=== PATIENT | female | born 1955 | race Caucasian/White ===

== ENCOUNTER 2018-04-30 19:18 | Inpatient (IN) ==
[2018-04-30] MEDS ORDERED: IOPAMIDOL 100 ML BOTTLE IV ONE (19:19)
--- NOTE | 2018-04-30 19:34 | Emergency Department Note ---
Abdominal Pain HPI - General Chief Complaint: Abdominal Pain Stated Complaint: Upper Abd Pain Time Seen by Provider: 04/30/18 19:33 - History of Present Illness HPI Narrative: This patient started having abdominal pain just before starting to eat dinner. Spell the right upper quadrant radiates around to the back. Also associated with nausea. Pain is sharp and came on suddenly. - Related Data Home Medications Medication Instructions Recorded Confirmed urea 50 % topical cream TOPICAL 30 Days #255 08/20/15 04/18/18 CBD Oil TOPICAL 02/13/18 04/18/18 diclofenac 1 % topical gel 2 g TOPICAL QID 02/13/18 04/30/18 Previous Rx's Medication Instructions Recorded aspirin 81 mg tablet,delayed 81 mg PO QDAY #30 tab 08/20/15 release desonide 0.05 % lotion 1 applic TOPICAL BID PRN #59 ml 11/02/16 duloxetine 30 mg capsule,delayed 30 mg PO QDAY #30 cap 05/09/17 release omeprazole 40 mg capsule,delayed 40 mg PO QDAY 90 Days #90 cap 07/12/17 release diltiazem CD 300 mg 300 mg PO QDAY #30 cap 08/04/17 capsule,extended release 24 hr fenofibrate micronized 134 mg 134 mg PO QDAY #90 cap 09/20/17 capsule acetaminophen 300 mg-codeine 60 mg 1 tab PO Q6H PRN #60 tab 09/21/17 tablet spironolactone 50 mg tablet 50 mg PO QAM #30 tab 12/14/17 metoprolol succinate ER 50 mg 50 mg PO TID PRN 30 Days #90 tab 01/19/18 tablet,extended release 24 hr duloxetine 60 mg capsule,delayed 120 mg PO QDAY #60 cap 02/13/18 release gabapentin 300 mg capsule 300 mg PO TID #270 each 02/22/18 nitrofurantoin 100 mg PO BID #14 cap 04/06/18 monohydrate/macrocrystals 100 mg capsule leflunomide 20 mg tablet 20 mg PO QDAY #60 tab 04/18/18 Allergies Allergy/AdvReac Type Severity Reaction Status Date / Time MELISSA Inhibitors Allergy Unknown Cough Verified 04/18/18 11:08 atorvastatin [From Lipitor] Allergy Unknown Muscle Pain Verified 04/18/18 11:08 hydrochlorothiazide Allergy Unknown Muscle Pain Verified 04/18/18 11:08 [From Diovan HCT] prochlorperazine Allergy Unknown Seizure Verified 04/18/18 11:08 [From Compazine] sucralose Allergy Unknown Nausea, Verified 04/18/18 11:08 vomiting valsartan [From Diovan HCT] Allergy Unknown Muscle Pain Verified 04/18/18 11:08 chlorine AdvReac Unknown Stomach Uncoded 04/18/18 11:08 pain Review of Systems All systems ED: reviewed and negative except as stated. Abdominal Pain PMH - Past Medical History Medical history: Reports: atrial fibrillation Surgical history ED: Reports: knee replacement, orthopedic, other, tonsillectomy - Social History Smoking status: Never smoker Physical Exam Limitations: no limitations General appearance: alert Head: atraumatic Eye: Present: normal appearance ENT: normal exam Neck: Present: normal inspection Chest: Present: normal inspection Respiratory: Present: normal lung sounds bilaterally Cardiovascular: Present: regular rate, normal rhythm, normal heart sounds Abdominal: Present: soft, tenderness. Absent: distention, guarding, rebound, rigidity Abdominal tenderness: Present: RUQ, moderate Neurological: Present: alert Psychiatric: Present: normal affect Skin: Present: warm Course Vital Signs Temperature 97.4 F 04/30/18 19:20 Pulse Rate 60 04/30/18 19:20 Respiratory Rate 18 04/30/18 19:20 Blood Pressure 101/66 04/30/18 19:20 Pulse Oximetry (%) 100 04/30/18 19:20 Temperature 97.8 F 05/01/18 07:34 Pulse Rate 82 05/01/18 07:34 Respiratory Rate 16 05/01/18 07:34 Blood Pressure 150/100 05/01/18 07:34 Pulse Oximetry (%) 96 05/01/18 07:34 Abdominal Pain - MDM Narrative Medical decision making narrative: This patient has what appears to be uncomplicated pancreatitis. She will be admitted to the hospital. - Lab Data Lab results reviewed: Yes I reviewed the patient's lab results. Result diagrams: 05/01/18 04:22 05/01/18 04:22 Lab Results 04/30/18 04/30/18 04/30/18 Range/Units 19:55 19:55 19:59 WBC 8.3 (4.5-11.0) K/mcL RBC 3.06 L (4.00-5.20) M/mcL Hgb 9.9 L (12.0-15.0) g/dL Hct 29.1 L (36.0-48.0) % POC Hct 29.0 L (36.0-48.0) % MCV 95.2 (80.0-100.0) fL MCH 32.4 (26.0-34.0) pg MCHC 34.0 (31.0-36.0) g/dL RDW 14.7 H (11.5-14.5) % Plt Count 282 (140-440) K/mcL MPV 8.4 (7.4-10.4) fL Gran % 56.4 (38.0-78.0) % Lymph % (Auto) 33.6 (15.5-49.0) % Blount % (Auto) 6.4 (1.0-12.0) % Eos % (Auto) 3.3 (0.0-7.0) % Baso % (Auto) 0.3 (0.0-2.0) % Gran # 4.7 (1.8-8.0) K/mcL Lymph # (Auto) 2.8 (1.5-4.8) K/mcL Blount # (Auto) 0.5 (0.1-0.9) K/mcL Eos # (Auto) 0.3 (0.0-0.7) K/mcL Baso # (Auto) 0 (0.0-0.3) K/mcL POC Sodium 137 (133-145) mmol/L Sodium (133-145) mmol/L POC Potassium 3.7 (3.3-5.1) mmol/L Potassium (3.3-5.1) mmol/L POC Chloride 103 (96-108) mmol/L Chloride (96-108) mmol/L Carbon Dioxide (22-30) mmol/L POC Total CO2 23 (22-30) mmol/L Anion Gap (8-16) POC BUN 22 (8-23) mg/dl BUN (8-23) mg/dl Creatinine (0.6-1.1) mg/dl POC Creatinine 1.3 H (0.6-1.1) mg/dl GFR Calculation Glucose (70-105) mg/dL POC Glucose 112 H (70-105) mg/dL Calcium (8.6-10.4) mg/dl POC WB Ioniz Calcium 0.94 L (1.16-1.32) mmol/L Total Bilirubin (0.0-1.0) mg/dL AST (0-37) U/l ALT (0-40) U/l Alkaline Phosphatase (39-117) U/L Lactate Dehydrogenase (94-250) U/L Total Protein (5.9-8.4) gm/dL Albumin (3.2-5.2) gm/dL Globulin (2.2-3.7) gm/dL Albumin/Globulin Ratio (1.0-2.3) Triglycerides (<150) mg/dl Lipase (7-60) U/L Urine Color Yellow Urine Appearance Clear Urine pH 5.0 (5.0-9.0) Ur Specific [place] 1.018 (1.000-1.035) Urine Protein Neg (NEG) mg/dL Urine Glucose (UA) Negative (NEG) mg/dL Urine Ketones Neg (NEG) mg/dL Urine Occult Blood Neg (<0.03) mg/dL Urine Nitrate Neg (NEG) Urine Bilirubin Neg (NEG) mg/dL Urine Urobilinogen Neg (NEG) mg/dL Ur Leukocyte Esterase 500 A (NEG) /uL Urine RBC 3 H (0-1) /hpf Urine WBC 87 H (0-4) /hpf Ur Squamous Epith Cells < 1 (0-4) /hpf Ur Transition Epith Cell 1 (0-2) /hpf Urine Bacteria 0 (0) /hpf Urine Mucus Few (0) /hpf Ur Culture Indicated? Yes 04/30/18 04/30/18 Range/Units 19:59 19:59 WBC (4.5-11.0) K/mcL RBC (4.00-5.20) M/mcL Hgb (12.0-15.0) g/dL Hct (36.0-48.0) % POC Hct (36.0-48.0) % MCV (80.0-100.0) fL MCH (26.0-34.0) pg MCHC (31.0-36.0) g/dL RDW (11.5-14.5) % Plt Count (140-440) K/mcL MPV (7.4-10.4) fL Gran % (38.0-78.0) % Lymph % (Auto) (15.5-49.0) % Blount % (Auto) (1.0-12.0) % Eos % (Auto) (0.0-7.0) % Baso % (Auto) (0.0-2.0) % Gran # (1.8-8.0) K/mcL Lymph # (Auto) (1.5-4.8) K/mcL Blount # (Auto) (0.1-0.9) K/mcL Eos # (Auto) (0.0-0.7) K/mcL Baso # (Auto) (0.0-0.3) K/mcL POC Sodium (133-145) mmol/L Sodium 139 (133-145) mmol/L POC Potassium (3.3-5.1) mmol/L Potassium 4.0 (3.3-5.1) mmol/L POC Chloride (96-108) mmol/L Chloride 101 (96-108) mmol/L Carbon Dioxide 23 (22-30) mmol/L POC Total CO2 (22-30) mmol/L Anion Gap 15.0 (8-16) POC BUN (8-23) mg/dl BUN 21 (8-23) mg/dl Creatinine 1.2 H (0.6-1.1) mg/dl POC Creatinine (0.6-1.1) mg/dl GFR Calculation 48 Glucose 115 H (70-105) mg/dL POC Glucose (70-105) mg/dL Calcium 9.8 (8.6-10.4) mg/dl POC WB Ioniz Calcium (1.16-1.32) mmol/L Total Bilirubin 0.4 (0.0-1.0) mg/dL AST 34 (0-37) U/l ALT 20 (0-40) U/l Alkaline Phosphatase 31 L (39-117) U/L Lactate Dehydrogenase 215 (94-250) U/L Total Protein 6.4 (5.9-8.4) gm/dL Albumin 4.2 (3.2-5.2) gm/dL Globulin 2.2 (2.2-3.7) gm/dL Albumin/Globulin Ratio 1.9 (1.0-2.3) Triglycerides 168 H (<150) mg/dl Lipase 1882 H (7-60) U/L Urine Color Urine Appearance Urine pH (5.0-9.0) Ur Specific [place] (1.000-1.035) Urine Protein (NEG) mg/dL Urine Glucose (UA) (NEG) mg/dL Urine Ketones (NEG) mg/dL Urine Occult Blood (<0.03) mg/dL Urine Nitrate (NEG) Urine Bilirubin (NEG) mg/dL Urine Urobilinogen (NEG) mg/dL Ur Leukocyte Esterase (NEG) /uL Urine RBC (0-1) /hpf Urine WBC (0-4) /hpf Ur Squamous Epith Cells (0-4) /hpf Ur Transition Epith Cell (0-2) /hpf Urine Bacteria (0) /hpf Urine Mucus (0) /hpf Ur Culture Indicated? - Radiology Data Radiology results reviewed: Yes I reviewed the patient's radiology results. Disposition Pt seen by OIL RECOVERY OPERATOR/PA only: No Clinical Impression: Pancreatitis Disposition: Xfer As Inpt ([facility]) Condition: Undetermined
[2018-04-30] MEDS ORDERED: LACTATED RINGERS 1,000 ML IV ONE (19:37)
[2018-04-30] MEDS ORDERED: ACETAMINOPHEN 1,000 MG/100 ML BOTTLE IV ONE (19:37)
[2018-04-30] MEDS ORDERED: ONDANSETRON 4 MG/2 ML VIAL IV ONE (19:37)
[2018-04-30 20:59] LABS: Basophils # (Auto) 0 K/mcL (0.0-0.3); Basophils % (Auto) 0.3 % (0.0-2.0); Eosinophils # (Auto) 0.3 K/mcL (0.0-0.7); Eosinophils % (Auto) 3.3 % (0.0-7.0); Granulocytes % (Auto) 56.4 % (38.0-78.0); Lymphocytes # (Auto) 2.8 K/mcL (1.5-4.8); Lymphocytes % (Auto) 33.6 % (15.5-49.0); Mean Cell Volume 95.2 fL (80.0-100.0); Mean Corpuscular Hemoglobin 32.4 pg (26.0-34.0); Monocytes # (Auto) 0.5 K/mcL (0.1-0.9); Monocytes % (Auto) 6.4 % (1.0-12.0); Platelet Count 282 K/mcL (140-440); RBC 3.06 M/mcL (4.00-5.20); Red Cell Distribution Width 14.7 % (11.5-14.5)
[2018-04-30 21:13] LABS: Appearance,Urine CLEAR; Bacteria,Urine 0 /hpf (0); Bilirubin,Urine NEG (NEG); Color,Urine YELLOW; Glucose,Urine (UA) NEGATIVE (NEG); Leukocyte Esterase,Urine 500 /uL (NEG); Mucus,Urine FEW /hpf (0); Protein,Urine NEG (NEG); Specific Gravity,Urine 1.018 (1.000-1.035); Urine Blood NEG mg/dL (<0.03); Urine RBC 3 /hpf (0-1); Urine Squamous Epithelial Cell < 1 /hpf (0-4); Urine Transitional Epi Cells 1 /hpf (0-2); Urine WBC 87 /hpf (0-4); Urobilinogen,Urine NEG (NEG)
[2018-04-30 21:27] LABS: ALT/SGPT 20 U/l (0-40); Albumin 4.2 gm/dL (3.2-5.2); Albumin/Globulin Ratio 1.9 (1.0-2.3); Alkaline Phosphatase 31 U/L (39-117); Blood Urea Nitrogen 21 mg/dl (8-23)
[2018-04-30 21:32] LABS: Lipase 1882 U/L (7-60)
[2018-04-30] MEDS ORDERED: LEVOFLOXACIN 750 MG/150 ML BAG IV ONE (21:36)
[2018-04-30] MEDS ORDERED: HYDROmorphone 2 MG/ML VIAL IV PRN (22:55)
[2018-05-01] MEDS ORDERED: LACTATED RINGERS 1,000 ML IV SCH (00:15)
--- NOTE | 2018-05-01 00:37 | Internal Med Progress Note ---
Medical - PN: Subj Patient information: Note initiated : 05/01/18 at 12:33 am Service Date, if different from initiated Date: [] Patient: Tameka Herndon 63 y/o F admitted on for Upper Abd Pain. Chief Complaint: [Pancreatitis] - Constitutional Vitals: Vital Signs Temp Pulse Resp BP Pulse Ox 97.4 F 74 19 121/93 98 04/30/18 19:20 04/30/18 22:32 04/30/18 22:32 04/30/18 22:30 04/30/18 22:32 Period Temp Pulse Resp BP Sys/Carey Pulse Ox Last 24 Hr 97.4 F 60-74 9-19 99-130/66-93 93-100 Intake and Output 04/30/18 04/30/18 05/01/18 13:59 21:59 05:59 Intake Total 100 / 100 1150 / 1150 Balance 100 / 100 1150 / 1150 Weight 150 lb Patient Weight 05/01/18 05:59 Weight 150 lb Intake & Output: Intake & Output 04/30/18 04/30/18 05/01/18 13:59 21:59 05:59 Intake Total 100 / 100 1150 / 1150 Balance 100 / 100 1150 / 1150 Weight 150 lb Intake: IV 100 / 100 1150 / 1150 Lactated Ringers 1,000 ml @ 1000 / 1000 Wide Open IV BOLUS ONE Rx#: [id number] Medical - PN: Obj Da - Labs CBC & Chem 7: 04/30/18 19:59 04/30/18 19:59 Labs: Abnormal Lab Results 04/30/18 04/30/18 04/30/18 19:59 19:59 19:59 RBC 3.06 L Hgb 9.9 L Hct 29.1 L POC Hct RDW 14.7 H Creatinine 1.2 H POC Creatinine Glucose 115 H POC Glucose POC WB Ioniz Calcium Alkaline Phosphatase 31 L Triglycerides 168 H Lipase 1882 H Ur Leukocyte Esterase Urine RBC Urine WBC 04/30/18 04/30/18 19:55 19:55 RBC Hgb Hct POC Hct 29.0 L RDW Creatinine POC Creatinine 1.3 H Glucose POC Glucose 112 H POC WB Ioniz Calcium 0.94 L Alkaline Phosphatase Triglycerides Lipase Ur Leukocyte Esterase 500 A Urine RBC 3 H Urine WBC 87 H Meds: Medications Hydromorphone HCl (Dilaudid) 0.5 mg IV Q15MIN PRN PRN Reason: PAIN LEVEL > 6 Last Admin: 04/30/18 23:11 Dose: 0.5 mg Lactated Ringer's (Lactated Ringers) 1,000 mls @ 500 mls/hr IV .Q2H [facility] Last Admin: 05/01/18 00:10 Dose: 500 mls/hr Medical - PN: A/P - Time Spent With Patient Total time spent is greater than 50% in coordination of care (as documented) at patient's floor/unit and/or counseling patient: - Narrative A/P Narrative: A: *acute pancreatitis: likely 2/2 gallstones *UTI: *CKD III (1.1-1.2) *h/o Afib: on ccb/bb/asa *RA/Fibro: follows with Ar[facility] *Anemia of CD: *HTN/HLD: P: -IVF's -clear liquids -pain control -Rocephin, pending UC -d/w gen surg - - -ppx: lovenox
[2018-05-01] MEDS ORDERED: DESONIDE TOPICAL PRN (00:46)
[2018-05-01] MEDS ORDERED: METOPROLOL SUCCINATE 50 MG TAB.XL.24H PO PRN (00:46)
[2018-05-01] MEDS ORDERED: cefTRIAXone 1 GM in DEXTROSE 5% IN WATER 50 ML IV SCH (00:46)
[2018-05-01] MEDS ORDERED: ONDANSETRON ODT 4 MG TABLET SL PRN (00:46)
[2018-05-01] MEDS ORDERED: HYDROmorphone 2 MG/ML VIAL ONE ×2 (00:55→03:58)
[2018-05-01] MEDS ORDERED: ONDANSETRON 4 MG/2 ML VIAL ONE (01:01)
[2018-05-01] MEDS: 0.9 % SODIUM CHLORIDE 1,000 ML IV SCH ×4 (01:03→18:45)
[2018-05-01] MEDS ORDERED: cefTRIAXone 1 GM VIAL ONE (01:09)
[2018-05-01] MEDS: 0.9 % SODIUM CHLORIDE 10 ML SYRINGE IV SCH ×4 (05:21→20:40)
[2018-05-01] MEDS ORDERED: diphenhydrAMINE 50 MG/ML VIAL IV PRN (05:43)
[2018-05-01] MEDS ORDERED: diphenhydrAMINE 50 MG/ML VIAL ONE (05:51)
[2018-05-01 06:45] LABS: Basophils # (Auto) 0 K/mcL (0.0-0.3); Basophils % (Auto) 0.3 % (0.0-2.0); Eosinophils # (Auto) 0 K/mcL (0.0-0.7); Eosinophils % (Auto) 0.1 % (0.0-7.0); Granulocytes % (Auto) 85.2 % (38.0-78.0); Lymphocytes # (Auto) 0.8 K/mcL (1.5-4.8); Lymphocytes % (Auto) 7.8 % (15.5-49.0); Mean Cell Volume 95.2 fL (80.0-100.0); Mean Corpuscular Hemoglobin 32.3 pg (26.0-34.0); Monocytes # (Auto) 0.7 K/mcL (0.1-0.9); Monocytes % (Auto) 6.6 % (1.0-12.0); Platelet Count 259 K/mcL (140-440); RBC 3.06 M/mcL (4.00-5.20); Red Cell Distribution Width 14.5 % (11.5-14.5)
[2018-05-01] MEDS: HYDROmorphone 2 MG/ML VIAL IV PRN ×4 (07:19→20:36)
[2018-05-01 07:28] LABS: ALT/SGPT 20 U/l (0-40); Albumin 4.1 gm/dL (3.2-5.2); Albumin/Globulin Ratio 1.9 (1.0-2.3); Alkaline Phosphatase 28 U/L (39-117); Bilirubin,Direct 0.3 mg/dL (0.0-0.3); Blood Urea Nitrogen 19 mg/dl (8-23); Gamma Glutamyl Transpeptidase 15 U/L (5-36); Uric Acid 4.1 mg/dL (2.5-8.0)
--- NOTE | 2018-05-01 08:11 | Internal Med Progress Note ---
Medical - PN: Subj Patient information: Note initiated : 05/01/18 at 8:09 am Service Date, if different from initiated Date: [] Patient: Tameka Herndon 63 y/o F admitted on 05/01/18 for Upper Abd Pain. Chief Complaint: [] Interval history: feeling a little better, abdominal pain present but improved, Review of Systems: constipation, denies headache/fever/chills/nausea/vomiting/chest pain/cough/ dyspnea/diarrhea. Otherwise see above. - Constitutional Vitals: Vital Signs Temp Pulse Resp BP Pulse Ox 97.8 F 82 16 150/100 96 05/01/18 07:34 05/01/18 07:34 05/01/18 07:34 05/01/18 07:34 05/01/18 07:34 Period Temp Pulse Resp BP Sys/Carey Pulse Ox Last 24 Hr 97.4 F-97.8 F 60-82 9-20 99-150/66-100 93-100 Intake and Output 04/30/18 05/01/18 05/01/18 21:59 05:59 13:59 Intake Total 100 / 100 1567 / 1567 Output Total 400 / 400 500 / 500 Balance 100 / 100 1167 / 1167 -500 / -500 Weight 150 lb 160 lb Intake & Output: Intake & Output 04/30/18 05/01/18 05/01/18 21:59 05:59 13:59 Intake Total 100 / 100 1567 / 1567 Output Total 400 / 400 500 / 500 Balance 100 / 100 1167 / 1167 -500 / -500 Weight 150 lb 160 lb Intake: IV 100 / 100 1417 / 1417 Lactated Ringers 1,000 ml @ 500 1267 / 1267 mls/hr IV .Q2H [facility] Rx#: [id number] Oral 150 / 150 Output: Void Amount 400 / 400 500 / 500 Other: Urine Appearance Clear Urine Color Straw # Voids 1 Exam: General: Alert, Awake, No acute Distress HEENT: EOMI, PERRL CV: RRR, No murmurs Pulm: Clear b/l, no wheezing/rhonchi/rales Abd: soft, TTP epigastrum, +BS x4 Ext: no clubbing/cyanosis/edema Neuro: Alert, no focal deficits, moves all extremities Skin: warm/dry Medical - PN: Obj Da - Labs CBC & Chem 7: 05/01/18 04:22 05/01/18 04:22 Labs: Abnormal Lab Results 05/01/18 05/01/18 05/01/18 04:22 04:22 04:22 RBC 3.06 L Hgb 9.9 L Hct 29.1 L POC Hct RDW Gran % 85.2 H Lymph % (Auto) 7.8 L Gran # 8.6 H Lymph # (Auto) 0.8 L Creatinine POC Creatinine Glucose 113 H POC Glucose POC WB Ioniz Calcium Alkaline Phosphatase 28 L Triglycerides Lipase 1647 H Ur Leukocyte Esterase Urine RBC Urine WBC 04/30/18 04/30/18 04/30/18 19:59 19:59 19:59 RBC 3.06 L Hgb 9.9 L Hct 29.1 L POC Hct RDW 14.7 H Gran % Lymph % (Auto) Gran # Lymph # (Auto) Creatinine 1.2 H POC Creatinine Glucose 115 H POC Glucose POC WB Ioniz Calcium Alkaline Phosphatase 31 L Triglycerides 168 H Lipase 1882 H Ur Leukocyte Esterase Urine RBC Urine WBC 04/30/18 04/30/18 19:55 19:55 RBC Hgb Hct POC Hct 29.0 L RDW Gran % Lymph % (Auto) Gran # Lymph # (Auto) Creatinine POC Creatinine 1.3 H Glucose POC Glucose 112 H POC WB Ioniz Calcium 0.94 L Alkaline Phosphatase Triglycerides Lipase Ur Leukocyte Esterase 500 A Urine RBC 3 H Urine WBC 87 H Meds: Medications Aspirin (Aspirin) 81 mg PO DAILY [facility] Ceftriaxone Sodium (Rocephin) 1 gm IV Q24H [facility] Diltiazem HCl (Cardizem Cd) 120 mg PO DAILY [facility] Diltiazem HCl (Cardizem Cd) 180 mg PO DAILY [facility] Diphenhydramine HCl (Benadryl) 25 mg IV Q6HP PRN PRN Reason: Allergic Symptoms Duloxetine HCl (Cymbalta) 30 mg PO QDAY [facility] Enoxaparin Sodium (Lovenox) 40 mg SQ DAILY [facility] Famotidine (Pepcid) 20 mg IV Q12 [facility] Fenofibrate (Antara) 129 mg PO DAILY [facility] Gabapentin (Neurontin) 300 mg PO TID [facility] Hydromorphone HCl (Dilaudid) 0.5 mg IV Q2HP PRN PRN Reason: PAIN LEVEL > 6 Last Admin: 05/01/18 07:19 Dose: 0.5 mg Sodium Chloride (Sodium Chloride 0.9%) 1,000 mls @ 125 mls/hr IV .Q8H [facility] Last Admin: 05/01/18 01:03 Dose: 125 mls/hr Leflunomide (Arava) 20 mg PO QDAY [facility] Metoprolol Succinate (Toprol Xl) 50 mg PO TIDP PRN PRN Reason: hypetension, labile Non-Formulary Medication (Duloxetine Hcl [Cymbalta]) 120 mg PO QDAY [facility] Ondansetron HCl (Zofran Odt) 4 mg SL Q6HP PRN PRN Reason: Nausea And Vomiting Desonide [Desowen] (Cream) 1 dose TOPICAL BID PRN PRN Reason: skin irritation Diclofenac Sodium [ (Voltaren] Gel) 1 dose TOPICAL QID [facility] Sodium Chloride (Saline Flush) 10 ml IV Q8 [facility] Last Admin: 05/01/18 05:21 Dose: Not Given Medical - PN: A/P - Time Spent With Patient Total time spent is greater than 50% in coordination of care (as documented) at patient's floor/unit and/or counseling patient: - Narrative A/P Narrative: A: *acute pancreatitis: likely 2/2 gallstones *UTI: *CKD III (1.1-1.2) *h/o Afib: on ccb/bb/asa *RA/Fibro: follows with Arsl[facility] *Anemia of CD: *HTN/HLD: P: -IVF's -clear liquids -pain control -Rocephin, pending -Dr. Sifuentes consulted for potential josey - -ppx: lovenox Medical - PN: Qual - VTE Deep Vein Thrombosis/Pulmonary Embolism Present on Admission: No
--- NOTE | 2018-05-01 09:03 | History and Physical Report ---
DATE OF ADMISSION: 05/01/2018 PRIMARY CARE PROVIDER: Dr. Jackson; Manager International, Dr. Mcdaniels. CHIEF COMPLAINT: Abdominal pain. HISTORY OF PRESENT ILLNESS: A 63-year-old female who developed what she says is a grinding, severe abdominal pain, upper mid abdominal pain radiating to the back shortly before dinner at 5:00. She did eat dinner at 5:30. The pain continued to get worse. She came into the ER. Workup included a CT abdomen as well as gallbladder ultrasound. The CT abdomen and pelvis showed pancreatitis and gallbladder showed some stones and sludge, no wall thickening or pericholecystic fluid. Lipase was elevated. She denies any trauma or new medications. She does state that she did have a gallbladder attack when she was 26 and they said that she should have her gallbladder out at that time. She did not have anything done. She has not had any issues since then. She does not drink alcohol. Other chemistry was okay including calcium. She does have hypertriglyceridemia for which she is on fenofibrate. I do not have that lab value back yet. She was given IV fluid and Dilaudid in the ER. She is also found to have a UTI, started on antibiotics. REVIEW OF SYSTEMS: Positive for abdominal pain. Denies nausea, vomiting. No chest pain. Negative for headache, fever, chills, coughing, shortness of breath, diarrhea, constipation. The remaining 10-point review of systems was reviewed and negative. PAST MEDICAL HISTORY: Chronic kidney disease stage III, history of rheumatoid arthritis, fibromyalgia, history of hypertension, hyperlipidemia, anemia of chronic disease, history of paroxysmal atrial fibrillation, history of GERD. PAST SURGICAL HISTORY: Bilateral total knee arthroplasty, tonsillectomy, hand surgery. FAMILY HISTORY: Mother had cardiac disease and melanoma. Father is healthy. SOCIAL HISTORY: The patient denies tobacco and alcohol. She drinks rarely, ambulates with a cane, and is on disability. She lives with her . ALLERGIES: MELISSA INHIBITORS, ATORVASTATIN, HYDROCHLOROTHIAZIDE. We are currently trying to find the rest in the system-apparently she has a few more allergies. MEDICATIONS: 1. Aspirin. 2. Diltiazem. 3. Metoprolol. 4. Duloxetine. 5. Fenofibrate. 6. Gabapentin. 7. Leflunomide. 8. Omeprazole. 9. Aldactone. PHYSICAL EXAMINATION: VITAL SIGNS: Temperature 97, pulse 78, respirations 15, blood pressure 125/86, oxygen 93. GENERAL: The patient is alert, awake, in no acute distress. HEENT: Normocephalic, atraumatic. Extraocular movements intact. Pupils equal, react to light. HEART: Regular at this time. No murmurs appreciated. PULMONARY: Clear to auscultation bilaterally. No wheeze, rhonchi or rales. ABDOMEN: Abdomen soft, tender to palpation at the epigastrium. Positive bowel sounds. EXTREMITIES: No clubbing or cyanosis. Bilateral trace edema in the legs. NEUROLOGIC: Cranial nerves II-XII grossly intact. No focal deficit. Sensation, strength intact both lower. SKIN: Warm and dry. LABORATORY DATA: WBC 8.3, hemoglobin 9.9, BUN 21, creatinine 1.2, lipase 1800, calcium 9.8, triglycerides 160, LDH 215. RADIOLOGIC STUDIES: CT of the pancreas was done, read by virtual as findings consistent with pancreatitis. The gallbladder ultrasound per ER physician discussion with ____ as noted to have some small stones, possibly some sludge. No increased wall thickness or pericholecystic fluid. ASSESSMENT: 1. Acute pancreatitis, suspect secondary to gallstone. 2. Urinary tract infection. 3. Chronic kidney disease stage III with a baseline creatinine of 1.1 to 1.2. 4. History of rheumatoid arthritis and fibromyalgia; follows with Dr. Mcdaniels. 5. History of hypertension and hyperlipidemia. 6. Anemia of chronic disease. 7. History of atrial fibrillation for which she has been on diltiazem, metoprolol and aspirin. 8. History of GERD. PLAN: The patient monitored in the hospital with aggressive IV fluid hydration and p.r.n. pain medication. Keep her on clear liquids at this time and we will advance diet as tolerated. We will do follow-up labs in the morning. We will discuss the case with General Surgery for eventual possible cholecystectomy. DVT prophylaxis with Lovenox. MERVIN:josie Job ID: [id number] Doc ID: [id number] Mj Carbajal DO
[2018-05-01] MEDS ORDERED: POLYETHYLENE GLYCOL 3350 17 GM PACKET PO PRN (09:11)
[2018-05-01] MEDS ORDERED: POLYETHYLENE GLYCOL 3350 17 GM PACKET PO ONE (09:11)
--- NOTE | 2018-05-01 09:53 | Cat Scan Report ---
CLINICAL INFORMATION: Abdominal pain - pancreatitis COMPARISON: None. TECHNIQUE: Following enteric contrast, 80 cc of Isovue-300 were injected intravenously, and 60 seconds later, 0.625 mm helical slices were obtained from the mid heart through the subtrochanteric regions. Following reconstruction, 2.5 mm sagittal, coronal and axial reformatted images were processed and reviewed at bone, lung and soft tissue windows. Five minutes later, 0.625 mm helical slices were obtained from the mid heart through the kidneys and viewed at soft tissue windows.The exam was performed using radiation dose optimization techniques including, but not limited to, automated exposure control, adjustment of the mA and/or kV according to patient size and use of iterative reconstruction technique. FINDINGS: Lung bases show mild dilatation and wall thickening of the visualized segmental and subsegmental bronchi scattered and scarring suggesting chronic bronchitis or asthma. No infiltrates or effusions. The visualized heart is normal. Small hiatal hernia noted Images through the abdomen show minimal fatty change within the liver and periportal edema. No focal hepatic lesions. The gallbladder is slightly enlarged, but there is no evidence of stone or wall thickening. The pancreas is mildly enlarged with inhomogeneous low attenuation - particularly the head, neck and proximal body. There is also moderate peripancreatic fluid compatible simple pancreatitis. The common bile and pancreatic ducts are normal caliber Both kidneys, adrenal glands, spleen and aorta, including aortic branches, are normal in size, configuration and attenuation without focal lesion. Images through the pelvis show urinary bladder to be unremarkable. Uterus is slightly retroflexed and normal in size for postmenopausal woman. The region of the ovaries are normal. Small amount of free fluid is noted in the deep true pelvis secondary to pancreatitis. The posterior wall of the gastric antrum and duodenal sweep show mild wall thickening which is sympathetic inflammation related to pancreatitis. The remainder of the small bowel and large bowel are unremarkable. Bone windows show no osseous abnormality. IMPRESSION: 1. Moderate, yet simple, pancreatitis predominantly involving the head neck and proximal body. There is moderate fluid in the peripancreatic fat planes and a small amount of free peritoneal fluid the deep true pelvis. Periportal edema noted 2. Small hiatal hernia 3. Lung bases show chronic bronchitis or asthma. Interpreted and Authenticated by: Hasmukh Platt 05/01/18
[2018-05-01] MEDS: FAMOTIDINE/PF 20 MG/2 ML VIAL IV SCH ×2 (10:17→20:37)
[2018-05-01] MEDS: ENOXAPARIN 40 MG/0.4 ML SYRINGE SQ SCH (10:17)
[2018-05-01] MEDS: FENOFIBRATE 43 MG CAPSULE PO SCH (10:18)
[2018-05-01] MEDS: DILTIAZEM 120 MG CAP.XL.24H PO SCH (10:18)
[2018-05-01] MEDS: ASPIRIN 81 MG TAB.CHEW PO SCH (10:18)
[2018-05-01] MEDS: DULoxetine 30 MG CAPSULE PO SCH ×3 (10:19→10:52)
[2018-05-01] MEDS: GABAPENTIN 300 MG CAPSULE PO SCH ×3 (10:19→20:38)
[2018-05-01] MEDS: DILTIAZEM 180 MG CAP.XL.24H PO SCH (10:19)
--- NOTE | 2018-05-01 10:55 | Ultrasound Report ---
CLINICAL INFORMATION: Abdominal pain COMPARISON: None. FINDINGS: There is an 8 mm sessile polyp in the gallbladder fundus. No definite stones, focal tenderness or gallbladder wall thickening. Common bile duct is normal - 4 mm. Liver is mildly hypoechoic and there is mild portal triad edema. No focal hepatic lesion. Pancreas is mildly hypoechoic. IMPRESSION: 1. Hypoechoic pancreas compatible with the clinical diagnosis pancreatitis. 2. 3. 8 mm polyp arising the gallbladder fundus. Suggest six month follow-up gallbladder ultrasound to ensure stability. No evidence of cholecystitis or stone. 4. Periportal edema which can indicate primary hepatic inflammation or, less likely, elevated right heart pressures. Please correlate with LFTs Interpreted and Authenticated by: Hasmukh Platt 05/01/18
[2018-05-01] MEDS: LEFLUNOMIDE 20 MG TABLET PO SCH (14:00)
[2018-05-01] MEDS: cefTRIAXone 1 GM VIAL IV SCH (15:10)
--- NOTE | 2018-05-01 18:07 | General Surgery Consult Note ---
History of Present Illness Patient information: Note initiated : 05/01/18 at 6:04 pm Service Date, if different from initiated Date: [] Patient: Tameka Herndon 63 y/o F admitted on 05/01/18 for for abdominal pain. The patient had onset of upper abdominal pain about 5 PM on yesterday. The pain moved to her lower abdomen. She developed nausea without vomiting. She was seen in the emergency room and was noted to have elevated lipase. CT of the abdomen was unremarkable except for some periportal changes of her liver. She also had some edematous changes of the head and body of her pancreas. Upper abdominal ultrasound is normal except for 8 mm polyp in the fundic portion of the gallbladder. There are no stones. She does not have sludge.HER liver transaminases are totally normal with a low alkaline phosphatase. Patient was told that she had sludge in her gallbladder at age 26, but she has not had any problems in the interim. She has a 50 pound weight loss but this is related to dietary changes that are intentional.. Review of Systems - Constitutional headache(s), weight loss - Respiratory no cough, no wheezing, no chest congestion - Gastrointestinal abdominal pain, cramping, nausea - Musculoskeletal arthralgias, joint swelling, stiffness - Integumentary no non-healing lesions, no pruritus, no rash - Neurological no dizziness, no numbness, no syncope, no weakness - Psychiatric depression - Hematologic/Lymphatic no easy bleeding, no easy bruising, no lymphadenopathy - Allergic/Immunologic no tongue swelling, no throat swelling, no uticaria, no wheezing, no lip swelling (medial L,) Past History Past medical history: Fibromyalgia. Rheumatoid arthritis. Depression. Chronic anemia Hypertension Past surgical history: Total knee arthroplasty Past family history: Heart disease, type unknown. History of stroke. History of hypertension. Undefined type of coagulopathy Past social history: Former smoker. Occasional drinker of alcohol. Denies drug use. Employed. Medications and Allergies Home Medications Medication Instructions Recorded Confirmed Type aspirin 81 mg tablet,delayed 81 mg PO QDAY #30 tab 08/20/15 04/30/18 Rx release urea 50 % topical cream TOPICAL 30 Days #255 08/20/15 04/18/18 History desonide 0.05 % lotion 1 applic TOPICAL BID PRN #59 ml 11/02/16 04/30/18 Rx omeprazole 40 mg capsule,delayed 40 mg PO QDAY 90 Days #90 cap 07/12/17 Rx release diltiazem CD 300 mg 300 mg PO QDAY #30 cap 08/04/17 04/30/18 Rx capsule,extended release 24 hr fenofibrate micronized 134 mg 134 mg PO QDAY #90 cap 09/20/17 04/30/18 Rx capsule acetaminophen 300 mg-codeine 60 mg 1 tab PO Q6H PRN #60 tab 09/21/17 04/30/18 Rx tablet spironolactone 50 mg tablet 50 mg PO QAM #30 tab 12/14/17 04/30/18 Rx metoprolol succinate ER 50 mg 50 mg PO TID PRN 30 Days #90 tab 01/19/18 Rx tablet,extended release 24 hr CBD Oil TOPICAL 02/13/18 04/18/18 History diclofenac 1 % topical gel 2 g TOPICAL QID 02/13/18 04/30/18 History duloxetine 60 mg capsule,delayed 120 mg PO QDAY #60 cap 02/13/18 04/30/18 Rx release gabapentin 300 mg capsule 300 mg PO TID #270 each 02/22/18 04/30/18 Rx nitrofurantoin 100 mg PO BID #14 cap 04/06/18 04/30/18 Rx monohydrate/macrocrystals 100 mg capsule leflunomide 20 mg tablet 20 mg PO QDAY #60 tab 04/18/18 04/30/18 Rx Allergies Allergy/AdvReac Type Severity Reaction Status Date / Time atorvastatin [From Lipitor] AdvReac Intermediate Muscle Pain Verified 05/01/18 09:22 hydrochlorothiazide AdvReac Intermediate Muscle Pain Verified 05/01/18 09:22 [From Diovan HCT] prochlorperazine AdvReac Intermediate Seizure Verified 05/01/18 09:22 [From Compazine] valsartan [From Diovan HCT] AdvReac Intermediate Muscle Pain Verified 05/01/18 09:22 MELISSA Inhibitors AdvReac Mild Cough Verified 05/01/18 09:22 sucralose AdvReac Mild Nausea, Verified 05/01/18 09:22 vomiting chlorine AdvReac Mild Stomach Uncoded 05/01/18 09:22 pain Exam Temp Pulse Resp BP Pulse Ox 98.5 F 82 18 138/82 94 05/01/18 16:00 08/14/18 08:00 05/01/18 16:00 05/01/18 16:00 05/01/18 16:00 - General physical appearance well developed, well nourished, no distress - Eyes PERRL, normal ocular movement - ENT normal pinna, normal nares, normal mucosa, no hearing loss, no congestion - Head Head exam IM: Present: atraumatic, normocephalic - Neck no masses, no bruits, trachea midline, no venous distension - Cardiovascular Cardiovascular exam IM: Present: normal rate and rhythm - Respiratory normal expansion, normal respiratory effort, clear to percussion, clear to auscultation - Abdomen Abdomen: Present: soft, tender (mild tenderness in the upper abdomen starting to the right of midline and extending into left upper quadrant; good active bowel sounds; mild distention), bowel sounds, distended. Absent: masses Hernia: Present: none - Integumentary Present: no rash, no growths, no abnormal pigmentation - Neurologic Present: normal coordination, normal sensation - Musculoskeletal Present: normal gait, normal posture - Psychiatric Present: oriented to time, oriented to person, oriented to place, speech is normal, memory intact Results - Labs 05/01/18 04:22 05/01/18 04:22 Abnormal lab results 04/30/18 04/30/18 04/30/18 Range/Units 19:55 19:55 19:59 RBC 3.06 L (4.00-5.20) M/mcL Hgb 9.9 L (12.0-15.0) g/dL Hct 29.1 L (36.0-48.0) % POC Hct 29.0 L (36.0-48.0) % RDW 14.7 H (11.5-14.5) % Gran % (38.0-78.0) % Lymph % (Auto) (15.5-49.0) % Gran # (1.8-8.0) K/mcL Lymph # (Auto) (1.5-4.8) K/mcL Creatinine (0.6-1.1) mg/dl POC Creatinine 1.3 H (0.6-1.1) mg/dl Glucose (70-105) mg/dL POC Glucose 112 H (70-105) mg/dL POC WB Ioniz Calcium 0.94 L (1.16-1.32) mmol/L Alkaline Phosphatase (39-117) U/L Triglycerides (<150) mg/dl Lipase (7-60) U/L Ur Leukocyte Esterase 500 A (NEG) /uL Urine RBC 3 H (0-1) /hpf Urine WBC 87 H (0-4) /hpf 04/30/18 04/30/18 05/01/18 Range/Units 19:59 19:59 04:22 RBC (4.00-5.20) M/mcL Hgb (12.0-15.0) g/dL Hct (36.0-48.0) % POC Hct (36.0-48.0) % RDW (11.5-14.5) % Gran % (38.0-78.0) % Lymph % (Auto) (15.5-49.0) % Gran # (1.8-8.0) K/mcL Lymph # (Auto) (1.5-4.8) K/mcL Creatinine 1.2 H (0.6-1.1) mg/dl POC Creatinine (0.6-1.1) mg/dl Glucose 115 H 113 H (70-105) mg/dL POC Glucose (70-105) mg/dL POC WB Ioniz Calcium (1.16-1.32) mmol/L Alkaline Phosphatase 31 L 28 L (39-117) U/L Triglycerides 168 H (<150) mg/dl Lipase 1882 H (7-60) U/L Ur Leukocyte Esterase (NEG) /uL Urine RBC (0-1) /hpf Urine WBC (0-4) /hpf 05/01/18 05/01/18 Range/Units 04:22 04:22 RBC 3.06 L (4.00-5.20) M/mcL Hgb 9.9 L (12.0-15.0) g/dL Hct 29.1 L (36.0-48.0) % POC Hct (36.0-48.0) % RDW (11.5-14.5) % Gran % 85.2 H (38.0-78.0) % Lymph % (Auto) 7.8 L (15.5-49.0) % Gran # 8.6 H (1.8-8.0) K/mcL Lymph # (Auto) 0.8 L (1.5-4.8) K/mcL Creatinine (0.6-1.1) mg/dl POC Creatinine (0.6-1.1) mg/dl Glucose (70-105) mg/dL POC Glucose (70-105) mg/dL POC WB Ioniz Calcium (1.16-1.32) mmol/L Alkaline Phosphatase (39-117) U/L Triglycerides (<150) mg/dl Lipase 1647 H (7-60) U/L Ur Leukocyte Esterase (NEG) /uL Urine RBC (0-1) /hpf Urine WBC (0-4) /hpf Diabetes panel 04/30/18 04/30/18 05/01/18 Range/Units 19:59 19:59 04:22 Sodium 139 137 (133-145) mmol/L Potassium 4.0 4.0 (3.3-5.1) mmol/L Chloride 101 100 (96-108) mmol/L Carbon Dioxide 23 25 (22-30) mmol/L BUN 21 19 (8-23) mg/dl Creatinine 1.2 H 1.0 (0.6-1.1) mg/dl Glucose 115 H 113 H (70-105) mg/dL Calcium 9.8 9.5 (8.6-10.4) mg/dl AST 34 30 (0-37) U/l ALT 20 20 (0-40) U/l Alkaline Phosphatase 31 L 28 L (39-117) U/L Total Protein 6.4 6.3 (5.9-8.4) gm/dL Albumin 4.2 4.1 (3.2-5.2) gm/dL Triglycerides 168 H 117 (<150) mg/dl Calcium panel 04/30/18 05/01/18 Range/Units 19:59 04:22 Calcium 9.8 9.5 (8.6-10.4) mg/dl Phosphorus 4.1 (2.7-4.5) mg/dL Albumin 4.2 4.1 (3.2-5.2) gm/dL Pituitary panel 04/30/18 05/01/18 Range/Units 19:59 04:22 Sodium 139 137 (133-145) mmol/L Potassium 4.0 4.0 (3.3-5.1) mmol/L Chloride 101 100 (96-108) mmol/L Carbon Dioxide 23 25 (22-30) mmol/L BUN 21 19 (8-23) mg/dl Creatinine 1.2 H 1.0 (0.6-1.1) mg/dl Glucose 115 H 113 H (70-105) mg/dL Calcium 9.8 9.5 (8.6-10.4) mg/dl Adrenal panel 04/30/18 05/01/18 Range/Units 19:59 04:22 Sodium 139 137 (133-145) mmol/L Potassium 4.0 4.0 (3.3-5.1) mmol/L Chloride 101 100 (96-108) mmol/L Carbon Dioxide 23 25 (22-30) mmol/L BUN 21 19 (8-23) mg/dl Creatinine 1.2 H 1.0 (0.6-1.1) mg/dl Glucose 115 H 113 H (70-105) mg/dL Calcium 9.8 9.5 (8.6-10.4) mg/dl Total Bilirubin 0.4 0.4 (0.0-1.0) mg/dL AST 34 30 (0-37) U/l ALT 20 20 (0-40) U/l Alkaline Phosphatase 31 L 28 L (39-117) U/L Total Protein 6.4 6.3 (5.9-8.4) gm/dL Albumin 4.2 4.1 (3.2-5.2) gm/dL All other labs normal. Assessment and Plan (1) Pancreatitis The patient's pancreatitis is probably idiopathic in origin. She does not have any stigmata of gallstone disease and her liver transaminases are entirely normal. her lipids are not elevated and not to be a primary source of pancreatitis. Would treat symptomatically until symptoms resolve. She does not need to have cholecystectomy. Status: Acute Qualifiers: Pancreatitis type: idiopathic Acute pancreatitis complication: no infection or necrosis
[2018-05-01] MEDS ORDERED: NON FORMULARY MEDICATION 1 DOSE MISCELL PO SCH (21:00)
[2018-05-02] MEDS: 0.9 % SODIUM CHLORIDE 1,000 ML IV SCH ×2 (03:25→12:16)
[2018-05-02] MEDS: HYDROmorphone 2 MG/ML VIAL IV PRN ×2 (04:24→07:58)
[2018-05-02] MEDS: 0.9 % SODIUM CHLORIDE 10 ML SYRINGE IV SCH ×3 (06:03→21:45)
[2018-05-02 06:35] LABS: Basophils # (Auto) 0 K/mcL (0.0-0.3); Basophils % (Auto) 0.3 % (0.0-2.0); Eosinophils # (Auto) 0 K/mcL (0.0-0.7); Eosinophils % (Auto) 0.1 % (0.0-7.0); Granulocytes % (Auto) 84.3 % (38.0-78.0); Lymphocytes # (Auto) 0.8 K/mcL (1.5-4.8); Lymphocytes % (Auto) 8.3 % (15.5-49.0); Mean Cell Volume 95.7 fL (80.0-100.0); Mean Corpuscular HGB Conc 33.3 g/dL (31.0-36.0); Mean Corpuscular Hemoglobin 31.9 pg (26.0-34.0); Monocytes # (Auto) 0.7 K/mcL (0.1-0.9); Platelet Count 245 K/mcL (140-440); RBC 2.91 M/mcL (4.00-5.20); Red Cell Distribution Width 14.3 % (11.5-14.5)
[2018-05-02 07:16] LABS: ALT/SGPT 15 U/l (0-40); Albumin 3.6 gm/dL (3.2-5.2); Albumin/Globulin Ratio 1.7 (1.0-2.3); Alkaline Phosphatase 26 U/L (39-117); Bilirubin,Direct 0.2 mg/dL (0.0-0.3); Blood Urea Nitrogen 11 mg/dl (8-23); Gamma Glutamyl Transpeptidase 12 U/L (5-36); Lipase 248 U/L (7-60); Uric Acid 2.6 mg/dL (2.5-8.0)
--- NOTE | 2018-05-02 08:16 | Internal Med Progress Note ---
Medical - PN: Subj Patient information: Note initiated : 05/02/18 at 8:10 am Service Date, if different from initiated Date: [] Patient: Tameka Herndon 63 y/o F admitted on 05/01/18 for Upper Abd Pain. Chief Complaint: [] Interval history: feeling a little better, abdominal pain present but improved, 05/02 had some nausea in the middle. No nausea vomiting dayshift, seems comfortable. Still has abdominal pain but with some improvement. Review of Systems: denies headache/fever/chills/nausea/vomiting/chest cough/dyspnea/diarrhea. Otherwise see above. - Constitutional Vitals: Vital Signs Temp Pulse Resp BP Pulse Ox 97.6 F 94 H 20 110/70 96 05/02/18 07:17 05/02/18 07:17 05/02/18 07:17 05/02/18 07:17 05/02/18 03:18 Period Temp Pulse Resp BP Sys/Carey Pulse Ox Last 24 Hr 97.6 F-99.2 F 94-105 12-20 110-147/70-93 92-96 Intake and Output 05/01/18 05/02/18 05/02/18 21:59 05:59 13:59 Intake Total 1120 / 1120 2375 / 2375 Output Total 150 / 150 Balance 970 / 970 2375 / 2375 Weight 160 lb Intake & Output: Intake & Output 05/01/18 05/02/18 05/02/18 21:59 05:59 13:59 Intake Total 1120 / 1120 2375 / 2375 Output Total 150 / 150 Balance 970 / 970 2375 / 2375 Weight 160 lb Intake: IV 1000 / 1000 1000 / 1000 Sodium Chloride 0.9% 1,000 ml @ 1000 / 1000 1000 / 1000 125 mls/hr IV .Q8H [facility] Rx#: [id number] Oral 120 / 120 1375 / 1375 Output: Emesis 150 / 150 Other: Stool Size Small Stool Consistency Formed # Voids 1 1 # Bowel Movements 1 Exam: General: Alert, Awake, No acute Distress HEENT: EOMI, CV: RRR, Normal s1/s2 Pulm: Clear b/l, no wheezing/rhonchi/rales Abd: soft, TTP epigastrium, +BS x4 Ext: no clubbing/cyanosis/edema Neuro: Alert, no focal deficits, moves all extremities Skin: warm/dry Medical - PN: Obj Da - Labs CBC & Chem 7: 05/02/18 04:56 05/02/18 04:56 Labs: Abnormal Lab Results 05/02/18 05/02/18 05/01/18 04:56 04:56 04:22 RBC 2.91 L 3.06 L Hgb 9.3 L 9.9 L Hct 27.9 L 29.1 L POC Hct RDW Gran % 84.3 H 85.2 H Lymph % (Auto) 8.3 L 7.8 L Gran # 8.5 H 8.6 H Lymph # (Auto) 0.8 L 0.8 L Creatinine POC Creatinine Glucose POC Glucose POC WB Ioniz Calcium Magnesium 1.5 L Alkaline Phosphatase 26 L Total Protein 5.7 L Globulin 2.1 L Triglycerides Lipase 248 H Ur Leukocyte Esterase Urine RBC Urine WBC 05/01/18 05/01/18 04/30/18 04:22 04:22 19:59 RBC Hgb Hct POC Hct RDW Gran % Lymph % (Auto) Gran # Lymph # (Auto) Creatinine POC Creatinine Glucose 113 H POC Glucose POC WB Ioniz Calcium Magnesium Alkaline Phosphatase 28 L Total Protein Globulin Triglycerides 168 H Lipase 1647 H Ur Leukocyte Esterase Urine RBC Urine WBC 04/30/18 04/30/18 04/30/18 19:59 19:59 19:55 RBC 3.06 L Hgb 9.9 L Hct 29.1 L POC Hct 29.0 L RDW 14.7 H Gran % Lymph % (Auto) Gran # Lymph # (Auto) Creatinine 1.2 H POC Creatinine 1.3 H Glucose 115 H POC Glucose 112 H POC WB Ioniz Calcium 0.94 L Magnesium Alkaline Phosphatase 31 L Total Protein Globulin Triglycerides Lipase 1882 H Ur Leukocyte Esterase Urine RBC Urine WBC 04/30/18 19:55 RBC Hgb Hct POC Hct RDW Gran % Lymph % (Auto) Gran # Lymph # (Auto) Creatinine POC Creatinine Glucose POC Glucose POC WB Ioniz Calcium Magnesium Alkaline Phosphatase Total Protein Globulin Triglycerides Lipase Ur Leukocyte Esterase 500 A Urine RBC 3 H Urine WBC 87 H Meds: Medications Aspirin (Aspirin) 81 mg PO DAILY [facility] Last Admin: 05/01/18 10:18 Dose: 81 mg Ceftriaxone Sodium (Rocephin) 1 gm IV Q24H [facility] Last Admin: 05/01/18 15:10 Dose: 1 gm Diltiazem HCl (Cardizem Cd) 120 mg PO DAILY [facility] Last Admin: 05/01/18 10:18 Dose: 120 mg Diltiazem HCl (Cardizem Cd) 180 mg PO DAILY [facility] Last Admin: 05/01/18 10:19 Dose: 180 mg Diphenhydramine HCl (Benadryl) 25 mg IV Q6HP PRN PRN Reason: Allergic Symptoms Last Admin: 05/01/18 10:50 Dose: 25 mg Duloxetine HCl (Cymbalta) 120 mg PO DAILY [facility] Last Admin: 05/01/18 10:51 Dose: 120 mg Enoxaparin Sodium (Lovenox) 40 mg SQ DAILY [facility] Last Admin: 05/01/18 10:17 Dose: 40 mg Famotidine (Pepcid) 20 mg IV Q12 [facility] Last Admin: 05/01/18 20:37 Dose: 20 mg Fenofibrate (Antara) 129 mg PO DAILY [facility] Last Admin: 05/01/18 10:18 Dose: 129 mg Gabapentin (Neurontin) 300 mg PO TID [facility] Last Admin: 05/01/18 20:38 Dose: 300 mg Hydromorphone HCl (Dilaudid) 0.5 mg IV Q2HP PRN PRN Reason: PAIN LEVEL > 6 Last Admin: 05/02/18 07:58 Dose: 0.5 mg Sodium Chloride (Sodium Chloride 0.9%) 1,000 mls @ 125 mls/hr IV .Q8H [facility] Last Admin: 05/02/18 03:25 Dose: 125 mls/hr Leflunomide (Arava) 20 mg PO QDAY [facility] Last Admin: 05/01/18 14:00 Dose: 20 mg Metoprolol Succinate (Toprol Xl) 50 mg PO TIDP PRN PRN Reason: hypetension, labile Non-Formulary Medication () 3 dose PO QHS [facility] Last Admin: 05/01/18 20:39 Dose: Not Given Ondansetron HCl (Zofran Odt) 4 mg SL Q6HP PRN PRN Reason: Nausea And Vomiting Last Admin: 05/01/18 18:23 Dose: 4 mg Desonide [Desowen] (Cream) 1 dose TOPICAL BID PRN PRN Reason: skin irritation Diclofenac Sodium [ (Voltaren] Gel) 1 dose TOPICAL QID [facility] Last Admin: 05/01/18 20:40 Dose: Not Given Polyethylene Glycol (Miralax) 17 gm PO DAILYP PRN PRN Reason: Constipation Sodium Chloride (Saline Flush) 10 ml IV Q8 [facility] Last Admin: 05/02/18 06:03 Dose: Not Given Medical - PN: A/P - Time Spent With Patient Total time spent is greater than 50% in coordination of care (as documented) at patient's floor/unit and/or counseling patient: - Narrative A/P Narrative: A: *acute pancreatitis: -GB u/s no stones/sludge; seen by gen surg no need for josey -Trigs/calcium unimpressive -no etoh or new meds -lipase 248<<[id number] *UTI: UC no growth *hypomag *CKD III (1.1-1.2): *h/o Afib: on ccb/bb/asa *RA/Fibro: follows with Arslan *Anemia of CD: + dilutional *HTN/HLD: P: -IVF's decrease rate -clear liquids to full liquids, if tolerates then likely d/c in AM -pain control -Rocephin, -ppx: lovenox Medical - PN: Qual - VTE Deep Vein Thrombosis/Pulmonary Embolism Present on Admission: No
[2018-05-02] MEDS ORDERED: MAGNESIUM SULFATE 8.12 MEQ in DEXTROSE 5% IN WATER 50 ML IV ONE (08:30)
[2018-05-02] MEDS ORDERED: CODEINE PO PRN (08:43)
[2018-05-02] MEDS ORDERED: ACETAMINOPHEN PO PRN (08:43)
[2018-05-02] MEDS: ENOXAPARIN 40 MG/0.4 ML SYRINGE SQ SCH (09:24)
[2018-05-02] MEDS: FENOFIBRATE 43 MG CAPSULE PO SCH (09:26)
[2018-05-02] MEDS: DULoxetine 30 MG CAPSULE PO SCH (09:26)
[2018-05-02] MEDS: FAMOTIDINE/PF 20 MG/2 ML VIAL IV SCH ×2 (09:26→21:44)
[2018-05-02] MEDS: DILTIAZEM 180 MG CAP.XL.24H PO SCH (09:27)
[2018-05-02] MEDS: DILTIAZEM 120 MG CAP.XL.24H PO SCH (09:27)
[2018-05-02] MEDS: LEFLUNOMIDE 20 MG TABLET PO SCH (09:27)
[2018-05-02] MEDS: ASPIRIN 81 MG TAB.CHEW PO SCH (09:27)
[2018-05-02] MEDS: GABAPENTIN 300 MG CAPSULE PO SCH ×3 (09:27→21:44)
[2018-05-02] MEDS: cefTRIAXone 1 GM VIAL IV SCH (10:36)
[2018-05-02] MEDS ORDERED: POLYETHYLENE GLYCOL 3350 17 GM PACKET PO ONE (11:25)
[2018-05-02] MEDS: ACETAMINOPHEN 325 MG TABLET PO PRN (16:20)
[2018-05-02] MEDS ORDERED: SENNOSIDES 1 TABLET PO SCH (21:00)
[2018-05-03] MEDS: ACETAMINOPHEN 325 MG TABLET PO PRN ×2 (00:50→06:51)
[2018-05-03] MEDS: 0.9 % SODIUM CHLORIDE 10 ML SYRINGE IV SCH (06:52)
[2018-05-03 07:07] LABS: Blood Urea Nitrogen 7 mg/dl (8-23); Lipase 46 U/L (7-60)
[2018-05-03] MEDS ORDERED: POTASSIUM CHLORIDE 20 MEQ TABLET PO ONE (08:07)
[2018-05-03] MEDS: FAMOTIDINE/PF 20 MG/2 ML VIAL IV SCH (08:22)
[2018-05-03] MEDS: cefTRIAXone 1 GM VIAL IV SCH (08:22)
--- NOTE | 2018-05-03 08:28 | Discharge Summary ---
Medical - DS: Prov Patient information: Note initiated : 05/03/18 at 8:25 am Service Date, if different from initiated Date: [] Patient: Tameka Herndon 63 y/o F admitted on 05/01/18 for Upper Abd Pain/ Pancreatitis. Chief Complaint: [] Date of admission: 05/01/18 00:42 Discharge date: 05/03/18 Primary care physician: Nick Jackson Consults: 04/30/18 23:00 Consult to Physician [CONS] Stat Comment: Consulting Provider: Mj Carbajal Reason For Exam: Physician to Consult 05/01/18 00:46 Consult to Physician [CONS] Routine Comment: PANCREATITTIS DUE TO GALLSTONES Consulting Provider: Chente Sifuentes Reason For Exam: Physician to Consult Medical - DS: Meds - Discharge Medications Active and Home Medications: Home Medications aspirin 81 mg tablet,delayed release 81 mg PO QDAY #30 tab 08/20/15 [Rx Confirmed 04/30/18 Last Taken Unknown] urea 50 % topical cream TOPICAL 30 Days #255 08/20/15 [History Confirmed Last Taken Unknown] desonide 0.05 % lotion 1 applic TOPICAL BID PRN #59 ml 11/02/16 [Rx Confirmed Last Taken Unknown] omeprazole 40 mg capsule,delayed release 40 mg PO QDAY 90 Days #90 cap 07/12/17 [Rx Confirmed 04/30/18 Last Taken Unknown] diltiazem CD 300 mg capsule,extended release 24 hr 300 mg PO QDAY #30 cap [Rx Confirmed 04/30/18 Last Taken Unknown] fenofibrate micronized 134 mg capsule 134 mg PO QDAY #90 cap 09/20/17 [Rx Confirmed 04/30/18 Last Taken Unknown] acetaminophen 300 mg-codeine 60 mg tablet 1 tab PO Q6H PRN #60 tab 09/21/17 [Rx Confirmed 04/30/18 Last Taken Unknown] spironolactone 50 mg tablet 50 mg PO QAM #30 tab 12/14/17 [Rx Confirmed Last Taken Unknown] metoprolol succinate ER 50 mg tablet,extended release 24 hr 50 mg PO TID PRN 30 Days #90 tab 01/19/18 [Rx Confirmed 04/30/18 Last Taken Unknown] CBD Oil TOPICAL 02/13/18 [History Confirmed 04/18/18 Last Taken Unknown] diclofenac 1 % topical gel 2 g TOPICAL QID 02/13/18 [History Confirmed 04/30/18 Last Taken Unknown] duloxetine 60 mg capsule,delayed release 120 mg PO QDAY #60 cap 02/13/18 [Rx Confirmed 04/30/18 Last Taken Unknown] gabapentin 300 mg capsule 300 mg PO TID #270 each 02/22/18 [Rx Confirmed Last Taken Unknown] nitrofurantoin monohydrate/macrocrystals 100 mg capsule 100 mg PO BID #14 cap [Rx Confirmed 04/30/18 Last Taken Unknown] leflunomide 20 mg tablet 20 mg PO QDAY #60 tab 04/18/18 [Rx Confirmed 04/30/18 Last Taken Unknown] Medical - DS: Hosp Hospital course: Mr. Herndon is a 63 year old F HISTORY OF PRESENT ILLNESS: A 63-year-old female who developed what she says is a grinding, severe abdominal pain, upper mid abdominal pain radiating to the back shortly before dinner at 5:00. She did eat dinner at 5:30. The pain continued to get worse. She came into the ER. Workup included a CT abdomen as well as gallbladder ultrasound. The CT abdomen and pelvis showed pancreatitis and gallbladder showed some stones and sludge, no wall thickening or pericholecystic fluid. Lipase was elevated. She denies any trauma or new medications. She does state that she did have a gallbladder attack when she was 26 and they said that she should have her gallbladder out at that time. She did not have anything done. She has not had any issues since then. She does not drink alcohol. Other chemistry was okay including calcium. She does have hypertriglyceridemia for which she is on fenofibrate. I do not have that lab value back yet. She was given IV fluid and Dilaudid in the ER. She is also found to have a UTI, started on antibiotics. Course: On further imaging follow-up appears that she did not have any stones in the gallbladder as per reviewed by general surgeon. This patient did not need any procedures. She did well with clear liquids, lipase came down. Urine culture no growth magnesium replete. Advance to full liquid tolerated that well patient improved and stable for discharge Discharge diagnosis: Acute pancreatitis urinary tract infection - Time Spent with Patient Total time spent providing and/or coordinating discharge services: Greater than 30 minutes Medical - DS: Exam - Constitutional Vitals: Vital Signs Temp Pulse Resp BP Pulse Ox 05/03/18 04:30 99.5 F H 99 H 16 116/79 95 05/03/18 00:00 99.9 F H 101 H 16 128/85 97 05/02/18 20:00 98.8 F 90 16 124/81 94 05/02/18 15:40 98.7 F 98 H 18 118/76 90 Intake and Output 05/02/18 05/03/18 05/03/18 21:59 05:59 13:59 Intake Total 800 / 800 1200 / 1200 Balance 800 / 800 1200 / 1200 Intake: Oral 800 / 800 1200 / 1200 Other: Meal Dinner Percent of Meal Consumed 25% Feeding Ability Independent Stool Size Small Small Stool Consistency Cindy Cindy # Voids 1 1 # Bowel Movements 1 1 # of times incontinent of 1 Bowels Weight 161 lb Medical - DS: Data Labs on day of discharge: Labs from last 24 hours 05/03/18 05/03/18 05:24 05:24 Sodium 138 Potassium 3.2 L Chloride 102 Carbon Dioxide 25 Anion Gap 11.0 BUN 7 L Creatinine 0.7 GFR Calculation 93 Glucose 89 Calcium 9.1 Magnesium 1.8 Lipase 46 Medical - DS: A/P - Patient/Caregiver Discharge Instructions Activity: increase activity as tolerated Diet: Full Liquid Additional Instructions: Start full liquid advance as tolerated - Follow up Plan Follow up with: Nick Jackson MD [Primary Care Provider] - Disposition: Home, Self-Care Prognosis: Good Rehab Potential: Good Medical - DS: Qual - VTE Deep Vein Thrombosis/Pulmonary Embolism Present on Admission: No
[2018-05-03] MEDS: LEFLUNOMIDE 20 MG TABLET PO SCH (08:33)
[2018-05-03] MEDS: GABAPENTIN 300 MG CAPSULE PO SCH (08:33)
[2018-05-03] MEDS: DILTIAZEM 180 MG CAP.XL.24H PO SCH (08:33)
[2018-05-03] MEDS: DULoxetine 30 MG CAPSULE PO SCH (08:33)
[2018-05-03] MEDS: ASPIRIN 81 MG TAB.CHEW PO SCH (08:34)
[2018-05-03] MEDS: FENOFIBRATE 43 MG CAPSULE PO SCH (08:34)
[2018-05-03] MEDS: DILTIAZEM 120 MG CAP.XL.24H PO SCH (08:34)
[2018-05-03] MEDS: ENOXAPARIN 40 MG/0.4 ML SYRINGE SQ SCH (08:34)
== END 2018-05-03 10:37 | disposition home or self-care (01) | DRG 439 ==
LOC: ED 19:18 → ICU 05-01 00:42 → MEDSUR 05-01 13:35
PROVIDERS: ADMIT Internal Medicine; ATTEND Internal Medicine